=== PATIENT | female | born 1990 | race American Indian/Alaskan Native ===

== ENCOUNTER 2018-12-26 04:00 | Emergency (ER) | payer OTHER ==
[2018-12-26 04:16] VITALS: BP 139/76
[2018-12-26 05:06] LABS: Basophils # (Auto) 0.1 K/mm3 (0.0-0.1); Basophils % (Auto) 0.3 % (0.0-1.8); Eosinophils % (Auto) 0.1 % (0.0-4.3); Hematocrit 35.7 % (30.3-42.9); Hemoglobin 11.7 gm/dl (10.1-14.3); Lymphocytes # (Auto) 2.1 K/mm3 (1.2-5.4); Lymphocytes % (Auto) 13.9 % (13.4-35.0); Mean Corpuscular HGB Conc 33 % (30-34); Mean Corpuscular Volume 83 fl (79-97); Monocytes # (Auto) 1.3 K/mm3 (0.0-0.8); Monocytes % (Auto) 8.6 % (0.0-7.3); Platelet Count 353 K/mm3 (140-440); Red Blood Count 4.31 M/mm3 (3.65-5.03); Red Cell Distribution Width 15.4 % (13.2-15.2)
[2018-12-26] MEDS ORDERED: DECADRON IV ONE (05:16)
[2018-12-26] MEDS ORDERED: CLEOCIN 900 MG/50 mL 900 MG/50 ML BAG IV ONE (05:16)
[2018-12-26] MEDS ORDERED: IBUPROFEN PO ONE (05:16)
--- NOTE | 2018-12-26 05:22 | Emergency Department Report ---
ED General Adult HPI - General Chief complaint: Headache Stated complaint: HEAD/JAW PAIN Time Seen by Provider: 12/26/18 04:40 Source: patient Mode of arrival: Ambulatory Limitations: No Limitations - History of Present Illness Initial comments: Patient female who presents with left-sided facial pain and earache history of infected dental care and recurring abscesses. states she is unable tolerate by mouth intake there is no fever this time patient's ER 2 days ago treated for headache with Reglan and Tylenol patient has not follow-up with [facility] Onset/Timin -: week(s), year(s) Location: face Radiation: neck Severity scale (0 -10): 10 Quality: aching Consistency: constant Improves with: none Worsens with: movement Associated Symptoms: fever/chills, headaches Treatments Prior to Arrival: none - Related Data Previous Rx's Medication Instructions Recorded Last Taken Type Chlorhexidine Mouthwash [Peridex] 15 ml MM BID #1 bottle 12/26/18 Unknown Rx Clindamycin [Clindamycin CAP] 300 mg PO Q6H 10 Days #40 capsule 12/26/18 Unknown Rx Tramadol HCl [Ultram] 50 mg PO Q6H PRN #12 tablet 12/26/18 Unknown Rx Allergies Allergy/AdvReac Type Severity Reaction Status Date / Time No Known Allergies Allergy Unverified 09/05/18 17:48 ED Review of Systems ROS: Stated complaint: HEAD/JAW PAIN Other details as noted in HPI Constitutional: chills, fever Eyes: denies: eye pain, eye discharge, vision change ENT: ear pain, throat pain, congestion Respiratory: denies: cough, shortness of breath, wheezing Cardiovascular: denies: chest pain, palpitations Endocrine: no symptoms reported Gastrointestinal: denies: abdominal pain, nausea, diarrhea Genitourinary: denies: urgency, dysuria, discharge Musculoskeletal: denies: back pain, joint swelling, arthralgia Skin: denies: rash, lesions Neurological: denies: headache, weakness, paresthesias Psychiatric: denies: anxiety, depression Hematological/Lymphatic: denies: easy bleeding, easy bruising ED Past Medical Hx - Past Medical History Previous Medical History?: Yes Hx Diabetes: Yes - Surgical History Past Surgical History?: No - Social History Smoking Status: Current Every Day Smoker Substance Use Type: None - Medications Home Medications: Home Medications Medication Instructions Recorded Confirmed Last Taken Type Chlorhexidine Mouthwash [Peridex] 15 ml MM BID #1 bottle 12/26/18 Unknown Rx Clindamycin [Clindamycin CAP] 300 mg PO Q6H 10 Days #40 capsule 12/26/18 Unknown Rx Tramadol HCl [Ultram] 50 mg PO Q6H PRN #12 tablet 12/26/18 Unknown Rx ED Physical Exam - General Limitations: No Limitations General appearance: alert, in no apparent distress - Head Head exam: Present: atraumatic, normocephalic - Eye Eye exam: Present: normal appearance, PERRL, EOMI Pupils: Present: normal accommodation - ENT ENT exam: Present: mucous membranes moist - Expanded ENT Exam Expanded TM/Canal exam: Erythema: Right TM, Left TM Mouth exam: Present: tongue normal. Absent: drooling, trismus, muffled voice, tongue elevation, laceration Teeth exam: Present: dental caries, dental tenderness # (multiple), gingival enlargement Throat exam: Positive: tonsillar erythema, tonsillomegaly. Negative: tonsillar exudate, R peritonsillar mass, L peritonsillar mass, other (uvula midline no stridor ) - Neck Neck exam: Present: normal inspection, full ROM, lymphadenopathy. Absent: tenderness, meningismus, thyromegaly - Respiratory Respiratory exam: Present: normal lung sounds bilaterally. Absent: respiratory distress, wheezes, stridor, chest wall tenderness - Cardiovascular Cardiovascular Exam: Present: regular rate, normal rhythm, normal heart sounds. Absent: systolic murmur, diastolic murmur, rubs, gallop - GI/Abdominal GI/Abdominal exam: Present: soft, normal bowel sounds. Absent: tenderness, rebound, mass, hernia - Rectal Rectal exam: Present: deferred - Extremities Exam Extremities exam: Present: normal inspection, full ROM, normal capillary refill. Absent: tenderness, calf tenderness - Back Exam Back exam: Present: normal inspection, full ROM. Absent: tenderness, CVA tenderness (R), CVA tenderness (L), rash noted - Neurological Exam Neurological exam: Present: alert, oriented X3, CN II-XII intact, normal gait, motor sensory deficit, reflexes normal - Psychiatric Psychiatric exam: Present: normal affect, normal mood - Skin Skin exam: Present: warm, dry, intact, normal color. Absent: rash ED Course Vital Signs 12/26/18 04:07 Temperature 98.2 F Pulse Rate 74 Respiratory 18 Rate Blood Pressure 139/76 O2 Sat by Pulse 96 Oximetry ED Medical Decision Making - Lab Data Result diagrams: 12/26/18 04:47 12/26/18 04:47 - Radiology Data Radiology results: image reviewed - Medical Decision Making Symptoms are much improved pain is now to return patient is tolerating by mouth intake without pain there is no stridor no murmurs no trismus plan to send her home with clindamycin and Peridex Ultram follow [facility] today for evaluation and treatment pt verbalized agreemeent and understanding of discharge plan. Critical care attestation.: If time is entered above; I have spent that time in minutes in the direct care of this critically ill patient, excluding procedure time. ED Disposition Clinical Impression: Dental abscess Disposition: DC-01 TO HOME OR SELFCARE Is pt being admited?: No Does the pt Need Aspirin: No Condition: Stable Instructions: Dental Abscess (ED) Prescriptions: Clindamycin [Clindamycin CAP] 300 mg PO Q6H 10 Days #40 capsule Chlorhexidine Mouthwash [Peridex] 15 ml MM BID #1 bottle Tramadol HCl [Ultram] 50 mg PO Q6H PRN #12 tablet PRN Reason: pain Referrals: [facility] [Outside] - 3-5 Days Forms: Work/School Release Form(ED) Time of Disposition: 07:16
[2018-12-26 05:28] LABS: BUN/Creatinine Ratio 7; Blood Urea Nitrogen 6 mg/dL (7-17); Calcium 9.2 mg/dL (8.4-10.2); Hemolysis Index 4
--- NOTE | 2018-12-26 07:07 | Cat Scan Report ---
PROCEDURE: CT NECK W CON TECHNIQUE: Computerized axial tomography of the soft tissue neck was performed following the IV inje ction of iodinated nonionic contrast. CT DOSE LENGTH PRODUCT: mGycm HISTORY: dental abscess COMPARISONS: None . TECHNICAL QUALITY: Satisfactory. FINDINGS: There are intramuscular abscesses in the left pterygoid region measuring up to 3.8 x 1.5 cm. There is no acute bony abnormality. Paranasal sinuses are clear. There is no airway compromise. The prevertebral soft tissues are normal in thickness. The tongue and epiglottis are unremarkable. Lung apices are clear. The parotid and submandibular glands are symmetrical. There is reactive bilateral submandibular lymphadenopathy. Thyroid gland is unremarkable. IMPRESSION: There are intramuscular abscesses in the left pterygoid region measuring up to 3.8 x 1.5 cm. There is no acute bony abnormality. Paranasal sinuses are clear. There is no airway compromise. There is reactive bilateral submandibular lymphadenopathy. This document is electronically signed by Kurtis Stephen MD., December 26 2018 07:06:11 AM ET
--- NOTE | 2018-12-26 07:21 | Cat Scan Report ---
PROCEDURE: CT HEAD/BRAIN W CON TECHNIQUE: Enhanced axial images were obtained of the brain after the uneventful administration of I V contrast. HISTORY: dental absces COMPARISONS: None FINDINGS: Normal doe-white matter differentiation. No abnormal areas of enhancement within the cerebrum or posterior fossa. No cerebral edema, fluid collection or focal mass. The ventricles are midline. No midline shift, mass effect or herniation. Calvarium is unremarkable. No erosive or destructive osseous changes to the orbits or frontal bone. Small air-fluid level in the left maxillary sinus. IMPRESSION: 1. Unremarkable CT brain. Dental bones not included in field of view for this study. Contrast MRI brain is more sensitive in the evaluation of brain abscess. This document is electronically signed by Paola Parson MD., December 26 2018 07:18:52 AM ET
== END 2018-12-26 07:27 | disposition home or self-care (01) ==
LOC: ED 04:00
DX: K04.7 Periapical abscess without sinus (principal); F17.200 Nicotine dependence, unspecified, uncomplicated; E11.9 Type 2 diabetes mellitus without complications
CPT/HCPCS: 36415; 70460; 70491; 80048; 84703; 85025; 96365; 96375; 99284; J1100; Q9967